=== PATIENT | female | born 1975 | race Caucasian/White ===

== ENCOUNTER 2018-12-10 16:09 | Emergency (ER) | payer MEDICAID ==
--- NOTE | 2018-12-10 16:27 | Emergency Department Record ---
History of Present Illness - General Chief complaint: ENT Stated complaint: LT EAR PAIN Time Seen by Provider: 12/10/18 16:20 Source: Patient Mode of Arrival: Ambulatory Limitations: No limitations - History of Present Illness Initial comments: 43 yo female presents with 2-3 days of fullness and plugged feeling in the ears. No fever. No cough. No sore throat. She has had similar symptoms about 2 months ago. She reports a health care provider at an urgent care cleaned them out with a curette but caused bleeding. That healed but the symptoms returned recently with muffled fullness. Location: L ear Severity scale (1-10): 5 Quality: Aching Improves with: None Worsens with: None Associated Symptoms: Hearing loss - Related Data Home Medications Medication Instructions Recorded Confirmed Last Taken Pantoprazole Sodium [Protonix] 20 mg PO DAILY 12/10/18 12/10/18 Unknown Pregabalin [Lyrica] 50 mg PO BID 12/10/18 12/10/18 Unknown Promethazine HCl [Phenergan] 25 mg PO ASDIR 12/10/18 12/10/18 Unknown Allergies Allergy/AdvReac Type Severity Reaction Status Date / Time hydroxyzine [From Atarax] Allergy RASH Verified 12/10/18 16:17 ibuprofen Allergy RASH Verified 12/10/18 16:17 ketorolac [From Toradol] Allergy RASH Verified 12/10/18 16:15 lidocaine Allergy RASH Verified 12/10/18 16:17 methylprednisolone Allergy RASH Verified 12/10/18 16:17 [From Solu-Medrol] prednisone Allergy RASH Verified 12/10/18 16:17 prochlorperazine Allergy HIVES Verified 12/10/18 16:17 [From Compazine] Travel Screening - Travel/Exposure Within Last 30 Days Have you traveled within the last 30 days?: No Review of Systems Constitutional: Denies: Chills, Fever, Malaise, Weakness Eyes: Denies: Eye discharge, Eye pain, Vision change ENT: Reports: As per HPI, Ear pain. Denies: Congestion, Throat pain Respiratory: Denies: Cough Cardiovascular: Denies: Chest pain, Palpitations, Syncope Endocrine: Denies: Fatigue Gastrointestinal: Denies: Abdominal pain, Diarrhea, Nausea, Vomiting Genitourinary: Denies: Dysuria Musculoskeletal: Denies: Arthralgia, Back pain, Myalgia Skin: Denies: Bruising, Change in color, Rash Neurological: Denies: Headache Psychiatric: Denies: Anxiety Hematological/Lymphatic: Denies: Easy bleeding, Easy bruising Past Medical History - SOCIAL HISTORY Smoking Status: Never smoker Alcohol Use: None Drug Use: None - RESPIRATORY Hx Respiratory Disorders: No - CARDIOVASCULAR Hx Cardio Disorders: No - NEURO Hx Neuro Disorders: Yes Hx Headaches: Yes - GI Hx GI Disorders: Yes Hx Reflux: Yes Hx Nausea/Vomiting: Yes - Hx Genitourinary Disorders: No - ENDOCRINE Hx Endocrine Disorders: No - MUSCULOSKELETAL Hx Musculoskeletal Disorders: Yes Hx Fibromyalgia: Yes - PSYCH Hx Psych Problems: No - HEMATOLOGY/ONCOLOGY Hx Hematology/Oncology Disorders: No Family Medical History Any Significant Family History?: No Physical Exam - General General Appearance: Alert, Oriented x3, Cooperative, No acute distress Limitations: No limitations - Head Head exam: Atraumatic, Normal inspection - Eye Eye exam: Normal appearance, PERRL, EOMI. negative: Conjunctival injection, Nystagmus, Periorbital swelling - ENT ENT exam: Normal exam, Normal orophraynx. negative: Mucous membranes dry, TM's normal bilaterally (obscurred by wax) Ear exam: External canal tenderness, Other (bilateral cerumen impaction). negative: Normal external inspection, Auricular hematoma, Auricular trauma Nasal Exam: Normal inspection Mouth exam: Normal external inspection - Neck Neck exam: Normal inspection. negative: Lymphadenopathy - Respiratory Respiratory exam: Normal lung sounds bilaterally. negative: Respiratory distress - Cardiovascular Cardiovascular Exam: Regular rate, Normal rhythm, Normal heart sounds - Neurological Neurological exam: Alert, Oriented X3 - Psychiatric Psychiatric exam: Normal affect, Normal mood - Skin Skin exam: Dry, Intact, Normal color, Warm Course Vital Signs 12/10/18 16:12 Temperature 97.9 F Pulse Rate 81 Respiratory 18 Rate Blood Pressure 127/95 Pulse Ox 99 - Reevaluation(s) Reevaluation #1: The ears were irrigated The right ear is completely clear of all wax and debris Some residual left wax with mild canal erythema now visible. The patient declined Tylenol for pain 12/10/18 16:39 12/10/18 16:44 The residual left wax debris was mostly removed Cortisporin Otic drops provided in the ED 12/10/18 16:46 Disposition Disposition: Discharge Clinical Impression: Impacted cerumen of both ears Disposition: Home, Self-Care Condition: (1) Good Instructions: Cerumen Impaction (ED) Additional Instructions: Call your doctor for the next available follow up appointment to recheck your ears Do not use Qtips as this can pack the wax into the ears even more Return to the ER for a recheck if worse, any new concerns or questions Review this ER visit and the tests performed with your family doctor Use 2 drops every 4 hours in the left ear Forms: Patient Portal Access Time of Disposition: 16:46 Quality - Quality Measures Quality Measures: N/A - Blood Pressure Screening Does Patient Have Any of the Following: No Blood Pressure Classification: Hypertensive Reading Systolic Measurement: 127 Diastolic Measurement: 95 Screening for High Blood Pressure: < Pre-Hypertensive BP, F/U Documented > [ [id number]] Pre-Hypertensive Follow-up Interventions: Referral to alternative/primary care provider.
[2018-12-10] MEDS ORDERED: NEOMYCIN/POLYMYXIN B SULF/HC 10ML BTL OT ONE (16:44)
[2018-12-10] MEDS ORDERED: ACETAMINOPHEN 500 MG TABLET PO ONE (16:45)
[2018-12-10] MEDS ORDERED: OFLOXACIN 0.3% 5 ML OPTH SOLN OPTH SCH (18:00)
== END 2018-12-10 16:56 | disposition home or self-care (01) ==
LOC: ER 16:09
DX: H61.23 Impacted cerumen, bilateral (principal)
CPT/HCPCS: 69209; 99282; 99283